=== PATIENT | female | born 1990 | race Two or more races ===

== ENCOUNTER 2017-02-21 15:13 | Outpatient (CLI) | payer OTHER | END 2017-02-21 15:14 | disposition home or self-care (01) | LOC: NC 15:13 | PROVIDERS: ATTEND Internal Medicine | DX: E66.9 Obesity, unspecified (principal); Z68.42 Body mass index [BMI] 45.0-49.9, adult; Z71.3 Dietary counseling and surveillance ==

== ENCOUNTER 2017-03-01 08:54 | Outpatient (CLI) | payer OTHER | END 2017-03-01 08:55 | disposition home or self-care (01) | LOC: NC 08:54 | PROVIDERS: ATTEND Internal Medicine | DX: E66.3 Overweight (principal); Z71.3 Dietary counseling and surveillance; Z68.42 Body mass index [BMI] 45.0-49.9, adult; G47.10 Hypersomnia, unspecified ==

== ENCOUNTER 2017-03-08 07:41 | Day surgery (SDC) | payer OTHER ==
[~2017-03-08 07:41] MED LIST: FENTANYL 250 MCG/5 ML AMP IV PRN; IV START KIT ONE; LACTATED RINGERS 1,000 ML IV SCH; LIDOCAINE Viscous 2% 15 ML UDCUP PO PRN; MIDAZOLAM HCL 5 MG/5 ML VIAL IV PRN
[2017-03-08] MEDS ORDERED: FENTANYL 100 MCG/2 ML VIAL ONE ×2 (07:46→07:56)
[2017-03-08 12:51] LABS: HELICOBACTER PYLORII DETECTION NEGATIVE (NEGATIVE)
--- NOTE | 2017-03-10 17:43 | SURGPATH ---
[facility] [address] [place] [id number] Patient Name: MARGRET KENDALL MR#: [id number] : 1990 Gender: F Specimen #: [id number] Collected: 03/08/2017 Received: 03/09/2017 Reported: 03/10/2017 Submitting Phys: GERONIMO QUESADA Copy To Phys: [facility] JOLIE MAJANO Clinical History / Pre-Operative Diagnosis: Epigastric pain, nausea, dysphagia, rule out giardia, celiac, or gastritis Specimen Source / Surgical Procedure Performed: #1 duodenal biopsy, #2 antral biopsy Interpretation: 1. DUODENUM, BIOPSY: - SMALL BOWEL MUCOSA SHOWING NO DIAGNOSTIC ABNORMALITIES. - NO EVIDENCE OF CELIAC DISEASE. - NO EVIDENCE OF SIGNIFICANT INFLAMMATION, VILLOUS BLUNTING, OR MALIGNANCY. 2. GASTRIC ANTRUM, BIOPSY: - GASTRIC MUCOSA SHOWING NO DIAGNOSTIC ABNORMALITIES. - NO MICROORGANISMS IDENTIFIED WITH ROUTINE STAINING. - NO EVIDENCE OF SIGNIFICANT INFLAMMATION, INTESTINAL METAPLASIA, OR MALIGNANCY. Electronically Signed Out Rob Pollack M.D., Ph.D. Gross Description: 1. The specimen is received in formalin labeled with the patient's name and "duodenum". The specimen consists of two fragments of gerber soft tissue each is 0.2-0.4 cm in greatest dimension. Submitted in toto in one cassette 2. The specimen is received in formalin labeled with the patient's name and "antrum". The specimen consists of three fragments of gerber soft tissue, 0.6 x 0.2 x 0.2 cm in aggregate. Submitted in toto in one cassette NURIA Cole Microscopic Description: 1. Examination of multiple levels from the duodenum biopsy shows two fragments of histologically unremarkable small bowel mucosa. The villous architecture is intact without evidence of blunting. There is no evidence of increased intraepithelial lymphocytes. There is no evidence of significant inflammation or malignancy. 2. Examination of multiple levels from the gastric antrum biopsy shows multiple fragments of histologically unremarkable gastric mucosa. The lamina propria is not expanded. No microorganisms are seen with routine staining. There is no evidence of significant inflammation, intestinal metaplasia, or malignancy. 1: [id number] 2: 70384 R10.13
== END 2017-03-08 09:42 | disposition home or self-care (01) ==
LOC: SDC 07:41
PROVIDERS: ATTEND Internal Medicine Gastroenterology
PROC: 0DB98ZX Excision of Duodenum, Via Natural or Artificial Opening Endoscopic, Diagnostic (ICD-10-PCS; principal; 2017-03-08)
PROC: 0DB68ZX Excision of Stomach, Via Natural or Artificial Opening Endoscopic, Diagnostic (ICD-10-PCS; 2017-03-08)
DX: K29.70 Gastritis, unspecified, without bleeding (principal); K29.80 Duodenitis without bleeding; D50.9 Iron deficiency anemia, unspecified; F32.9 Major depressive disorder, single episode, unspecified
CPT/HCPCS: 87081; 43239; J3010 ×2; J2250; A9270; J7120